=== PATIENT | female | born 1965 | race Caucasian/White ===

== ENCOUNTER 2016-03-29 07:01 | Emergency (ER) | payer BC ==
[2016-03-29 07:16] VITALS: BP 104/65
--- NOTE | 2016-03-29 07:31 | UC ---
IRaudel,Jacob, scribed for Rufino Diaz MD on 03/29/16 at 0727 . FLU HPI - HPI Summary HPI Summary: THis 50 y/o female presents to [facility] with chief complaint of gradually worsening flu-like symptoms since yesterday. Pt reports sore throat, RODNEY, ear pain, productive cough, rhinorrhea, post nasal drips, and sinus discomfort. She also reports fever that is currently mild/resolved. Coughing makes throat pain worse. Dayquil gives little relief. She is UTD with flu vaccination this year. PMHx includes herniated disc at L5S1 s/p laminectomy x2 and mitral valve prolapse. FHx includes HTN. - History of Current Complaint Stated Complaint: COUGH CONGESTION FEVER HEADACHE Time Seen by Provider: 03/29/16 07:11 Hx Obtained From: Patient, Medical Records Onset/Duration: Gradual Onset, Lasting Days, Still Present Severity Currently: Moderate Severity Initially: Mild Associated Signs & Symptoms: Positive: Cough - productive, Sore Throat, Nasal Congestion, Headache - Allergy/Home Medications Allergies/Adverse Reactions: Allergies Allergy/AdvReac Type Severity Reaction Status Date / Time No Known Allergies Allergy Verified 03/29/16 07:09 Home Medications: Home Medications Dextromethorphan-Phenylephrine [Day-Time Cold/Flu Relief 10-5-325 mg/15Ml] 1 liq PO 03/29/16 [History] PMH/Surg Hx/FS Hx/Imm Hx Psychological History Of: Reports: Anxiety, Depression Cancer History Of: Denies: Breast Cancer - Surgical History Surgical History: Yes Surgery Procedure, Year, and Place: L5S1 surgery 2006 and 2008, [facility] – [place] - Family History Known Family History: Positive: Cardiac Disease, Hypertension - Social History Occupation: Employed Full-time Alcohol Use: Daily Alcohol Amount: 1-2 5X/WEEK Substance Use Type: None Smoking Status (MU): Never Smoked Tobacco - Immunization History Most Recent Influenza Vaccination: fall 2015 Review of Systems Constitutional: Fever - yesteryday. CUrrently mild/resolved Eyes: Negative ENT: Sore Throat, Ear Ache, Nasal Discharge, Other - sinus discomfort Respiratory: Cough - productive Cardiovascular: Negative Gastrointestinal: Negative Genitourinary: Negative Motor: Negative Neurovascular: Negative Musculoskeletal: Negative Neurological: Negative Psychological: Negative All Other Systems Reviewed And Are Negative: Yes Physical Exam Triage Information Reviewed: Yes Appearance: Well-Appearing, No Pain Distress, Well-Nourished Vital Signs: Initial Vital Signs Temp 99.3 F 03/29/16 07:12 Pulse 81 03/29/16 07:12 Resp 16 03/29/16 07:12 BP 104/65 03/29/16 07:12 Pulse Ox 96 03/29/16 07:12 Vital Signs Reviewed: Yes Eyes: Positive: Conjunctiva Clear ENT: Positive: Normal ENT inspection, Hearing grossly normal, Pharyngeal erythema, Nasal congestion, Nasal drainage, TMs normal Neck: Positive: Supple, Nontender, No Lymphadenopathy Respiratory: Positive: Chest non-tender, Lungs clear, Normal breath sounds Cardiovascular: Positive: RRR, No Murmur, Pulses Normal Abdominal Exam: Normal Skin Exam: Normal Flu Course/Dx - Differential Dx/Diagnosis Provider Diagnoses: URI Discharge - Discharge Plan Condition: Stable Disposition: HOME Patient Education Materials: Upper Respiratory Infection (ED) Forms: *Work Release Additional Instructions: viral illness, no need for abx at this time follow up as needed The documentation as recorded by the Raudel romero Soohyun accurately reflects the service I personally performed and the decisions made by Joe murray Hossein, MD.
== END 2016-03-29 07:30 | disposition home or self-care (01) ==
LOC: UCEAST 07:01
DX: J06.9 Acute upper respiratory infection, unspecified (principal)
CPT/HCPCS: 99211; G0463

== ENCOUNTER 2016-06-05 14:18 | Emergency (ER) | payer BC ==
[2016-06-05 14:38] VITALS: BP 116/72
--- NOTE | 2016-06-05 14:46 | UC ---
FLU HPI - HPI Summary HPI Summary: Uri for 1 week---feels better to return to work today--no fevers, chills or SOB - History of Current Complaint Chief Complaint: UCGeneralIllness Stated Complaint: CONGESTION COUGH Time Seen by Provider: 06/05/16 14:25 Hx Obtained From: Patient ?: No Onset/Duration: Gradual Onset, Lasting Days - 7, Still Present - but getting better Severity Currently: Moderate Severity Initially: Mild Associated Signs & Symptoms: Positive: Myalgia, Cough, Sore Throat - Allergy/Home Medications Allergies/Adverse Reactions: Allergies Allergy/AdvReac Type Severity Reaction Status Date / Time No Known Allergies Allergy Verified 03/29/16 07:09 Home Medications: Home Medications Cetirizine* [ZyrTEC 10 MG TAB*] 06/05/16 [History] PMH/Surg Hx/FS Hx/Imm Hx Previously Healthy: No Cardiovascular History Of: Reports: Cardiac Disorders - MVprolapse Psychological History Of: Reports: Anxiety, Depression Cancer History Of: Denies: Breast Cancer - Surgical History Surgical History: Yes Surgery Procedure, Year, and Place: L5S1 surgery 2006 and 2008, [facility] [place] - Family History Known Family History: Positive: Cardiac Disease, Hypertension - Social History Occupation: Employed Full-time Alcohol Use: Daily Alcohol Amount: 1-2 5X/WEEK Substance Use Type: None Smoking Status (MU): Never Smoked Tobacco - Immunization History Most Recent Influenza Vaccination: fall 2015 Review of Systems Constitutional: Negative Skin: Negative Eyes: Negative ENT: Sore Throat, Nasal Discharge Respiratory: Cough Cardiovascular: Negative Gastrointestinal: Negative Genitourinary: Negative Motor: Negative Neurovascular: Negative Musculoskeletal: Negative Neurological: Negative Psychological: Negative All Other Systems Reviewed And Are Negative: Yes Physical Exam Triage Information Reviewed: Yes Appearance: Well-Appearing, No Pain Distress, Well-Nourished Vital Signs: Initial Vital Signs Temp 98.7 F 06/05/16 14:33 Pulse 72 06/05/16 14:33 Resp 18 06/05/16 14:33 BP 116/72 06/05/16 14:33 Pulse Ox 97 06/05/16 14:33 Vital Signs Reviewed: Yes Eye Exam: Normal Eyes: Positive: Conjunctiva Clear ENT Exam: Normal ENT: Positive: Normal ENT inspection, Hearing grossly normal, Pharynx normal, Nasal congestion, TMs normal. Negative: Nasal drainage, Tonsillar swelling, Tonsillar exudate, Trismus, Muffled/hoarse voice Dental Exam: Normal Neck exam: Normal Neck: Positive: Supple, Nontender, No Lymphadenopathy Respiratory Exam: Normal Respiratory: Positive: Chest non-tender, Lungs clear, Normal breath sounds, No respiratory distress, No accessory muscle use Cardiovascular Exam: Normal Cardiovascular: Positive: RRR, No Murmur, Pulses Normal, Brisk Capillary Refill Abdominal Exam: Normal Abdomen Description: Positive: Nontender, No Organomegaly, Soft Bowel Sounds: Positive: Present Musculoskeletal Exam: Normal Musculoskeletal: Positive: Strength Intact, ROM Intact, No Edema Neurological Exam: Normal Neurological: Positive: Alert, Muscle Tone Normal Psychological Exam: Normal Skin Exam: Normal Flu Course/Dx - Course Course Of Treatment: tylenol, ibuprofen, flonase follow with pcp prn - Differential Dx/Diagnosis Differential Diagnosis/HQI/PQRI: Influenza, Pneumonia, RSV, Upper Respiratory Infection Provider Diagnoses: URI, NAsal Congestion Discharge - Discharge Plan Condition: Stable Disposition: HOME Prescriptions: Fluticasone NASAL SPRAY 50MCG* [Flonase NASAL SPRAY 50MCG*] 2 spray BOTH NARES DAILY #1 btl Patient Education Materials: Rhinosinusitis (ED), Cold Symptoms (ED) Forms: *Work Release Referrals: Maribel Chandler MD [Primary Care Provider] -
== END 2016-06-05 14:50 | disposition home or self-care (01) ==
LOC: UCEAST 14:18
DX: J06.9 Acute upper respiratory infection, unspecified (principal); R09.81 Nasal congestion; I34.1 Nonrheumatic mitral (valve) prolapse
CPT/HCPCS: 99212; G0463